=== PATIENT | female | born 1985 | race Caucasian/White ===

== ENCOUNTER 2018-04-18 14:46 | Inpatient (IN) ==
[2018-04-18] MEDS ORDERED: Morphine Sulfate PF Inj 5 MG/10 ML Ampul ONE (16:07)
[2018-04-18] MEDS ORDERED: Citric Acid/Sodium Citrate Liq 30 ML UDC ONE (16:33)
[2018-04-18 16:35] LABS: Baso % (Auto) 0.1 % (0.0-2.0); Eos % (Auto) 0.2 % (0.0-4.0); Hematocrit 35.8 % (35.0-46.0); Hemoglobin 12.6 gm/dL (11.6-15.3); Lymph # (Auto) 1.5 th/mm3 (1.0-4.8); Lymph % (Auto) 13.5 % (9.0-44.0); Mean Corpuscular HGB Conc 35.2 % (32.0-36.0); Mean Corpuscular Hemoglobin 31.8 pg (27.0-34.0); Mean Corpuscular Volume 90.2 fL (80.0-100.0); Mean Platelet Volume 7.4 fL (7.0-11.0); Mono # (Auto) 0.7 th/mm3 (0.0-0.9); Mono % (Auto) 6.1 % (0.0-8.0); Neut # (Auto) 9.1 th/mm3 (1.8-7.7); Neut % (Auto) 80.1 % (16.0-70.0); Platelet Count 166 th/mm3 (150-450); Red Blood Count 3.97 mil/mm3 (4.00-5.30); Red Cell Distribution Width 13.4 % (11.6-17.2); White Blood Count 11.4 th/mm3 (4.0-11.0)
[2018-04-18] MEDS ORDERED: Normosol-R pH 7.4 Inj 2,000 ML IV.CONT ONE (16:45)
[2018-04-18] MEDS ORDERED: Phenylephrine/NS 1000 MCG/10ML Syringe IV.PUSH ONE (16:45)
[2018-04-18] MEDS ORDERED: Naloxone Inj 0.4 MG/ML Vial IV.PUSH PRN ×2 (16:50→22:27)
[2018-04-18 16:54] LABS: Bacteria,Urine Rare /hpf; Bilirubin,Urine Negative (Negative); Clarity,Urine Hazy (Clear); Color,Urine Yellow (Yellw/Straw); Glucose,Urine (UA) Negative (Negative); Leukocyte Esterase,Urine Negative (Negative); Mucus,Urine Few /lpf (Occasional); Nitrite,Urine Negative (Negative); Specific Gravity,Urine 1.015 (1.002-1.035); Squamous Epithelial Cell,Urine 1 /hpf (0-5)
[2018-04-18 17:09] LABS: Amphetamine Urine With Conf Neg (Neg); Benzodiazepine Urine With Conf Neg (Neg)
[2018-04-18] MEDS ORDERED: Oxytocin 30 Units/500ml Premix 30 UNITS/500 ML BAG IV.SIG ONE (17:10)
[2018-04-18] MEDS ORDERED: Ketorolac Inj 30 MG/ML (IVP) Vial ONE (18:26)
--- NOTE | 2018-04-18 19:01 | MP ---
cc: No Sahu MD DATE OF OPERATION: 04/18/2018 PREOPERATIVE DIAGNOSES: Intrauterine at 40 weeks and 2 days of gestation with breech presentation and oligohydramnios. POSTOPERATIVE DIAGNOSES: Intrauterine at 40 weeks and 2 days of gestation with breech presentation and oligohydramnios. PROCEDURE PERFORMED: Primary low transverse section. SURGEON: No Sahu MD ANESTHESIA: Spinal. FINDINGS AT SURGERY: Included a viable female weighing 8 pounds 0 ounces with Apgars of 4 and 8. Normal-appearing tubes and ovaries bilaterally. Sb breech presentation. ESTIMATED BLOOD LOSS: 800 mL. COMPLICATIONS: None. PROCEDURE IN DETAIL: After proper consents were obtained and blood had been typed and screened, the patient was taken to the operating room where spinal anesthetic was placed. She was then placed in the dorsal position, sterilely prepped and draped and a Bajwa catheter was placed. At this time, using a sharp knife, a Pfannenstiel skin incision was performed. This was carried down to the fascia using the Bovie cautery. The fascia was nicked in the midline and extended superolaterally on each side via blunt dissection of the muscles off of the fascia. The peritoneum was identified, grasped with 2 hemostats and entered sharply with Metzenbaum scissors. This incision was extended superiorly and inferiorly, paying close attention to the bladder. Bladder blade was placed. Bladder flap was developed. Bladder blade was replaced. We made a transverse incision in the lower uterine segment and extended that using the finger fracture technique. Rupture of membranes revealed clear fluid. We had a controlled delivery of the sb breech, delivering the anterior leg first, followed by the second leg. We then rotated the body to the dorsal side up, delivered to the level of the mid scapula and then swiped the right hand across the face and chest, followed by the left hand. We then delivered the vertex. Bulb suction to the oropharynx and nares. We did delayed cord clamping for 30 seconds, clamped and cut in between and the was handed to the team in attendance, a viable female weighing 8 pounds 0 ounces with Apgars 4 and 8. At this time, cord blood sample was obtained. Placenta was removed. Uterus was exteriorized and wiped clean of clots and debris. The uterine incision was closed with a #1 chromic suture, starting at each apex and meeting in the midline in a running interlocking fashion. Excellent hemostasis was noted. Irrigation was performed of the abdominopelvic cavity. We placed the uterus back into the cavity. We closed the muscles using a #1 chromic suture x 1 and then closed the fascia using 0 Vicryl, starting at each apex and meeting in the midline in a running fashion. Irrigation was performed of the subcutaneous. Hemostasis was achieved with Bovie cautery. space was closed with interrupted sutures of 3-0 Vicryl. We then closed the skin with jeffrey. All sponge, lap and needle counts were correct x 3. MD COOPER John/tyrell , 05:59 PM , 06:09 PM
[2018-04-18] MEDS ORDERED: Oxytocin 30 Units/500ml Premix 30 UNITS/500 ML BAG IV.SIG PRN (21:44)
[2018-04-19] MEDS: ceFAZolin 1 GM Premix Inj 1 GM/50 ML FROZ.PIGGY IV.SIG SCH ×2 (02:11→12:24)
[2018-04-19 05:55] LABS: Baso % (Auto) 0.1 % (0.0-2.0); Eos % (Auto) 0.4 % (0.0-4.0); Hematocrit 29.4 % (35.0-46.0); Hemoglobin 9.9 gm/dL (11.6-15.3); Lymph % (Auto) 8.6 % (9.0-44.0); Mean Corpuscular HGB Conc 33.6 % (32.0-36.0); Mean Corpuscular Hemoglobin 30.6 pg (27.0-34.0); Mean Corpuscular Volume 91.3 fL (80.0-100.0); Mean Platelet Volume 7.7 fL (7.0-11.0); Mono # (Auto) 0.6 th/mm3 (0.0-0.9); Mono % (Auto) 5.1 % (0.0-8.0); Neut % (Auto) 85.8 % (16.0-70.0); Platelet Count 135 th/mm3 (150-450); Red Blood Count 3.22 mil/mm3 (4.00-5.30); Red Cell Distribution Width 12.9 % (11.6-17.2); White Blood Count 11.7 th/mm3 (4.0-11.0)
--- NOTE | 2018-04-19 08:11 | P.PNOB ---
Subjective Post op day: 1 Interval history: Pt doing well, breast feeding going well, pain controlled Objective Vital Signs/I&O: Vital Signs 04/18/18 16:26 04/18/18 16:32 04/18/18 17:40 Temperature 97.8 F Pulse Rate 102 H 101 H 88 Respiratory Rate 19 15 Blood Pressure 133/92 H 109/83 125/70 04/18/18 17:54 04/18/18 18:01 04/18/18 18:02 Temperature Pulse Rate 91 H 85 Respiratory Rate 19 20 Blood Pressure 127/67 143/86 H 04/18/18 18:16 04/18/18 18:18 04/18/18 18:19 Temperature Pulse Rate 85 Respiratory Rate 20 Blood Pressure 134/65 04/18/18 18:32 04/18/18 18:33 04/18/18 18:45 Temperature Pulse Rate 82 85 Respiratory Rate 19 Blood Pressure 136/70 143/79 H 04/18/18 18:46 04/18/18 19:01 04/18/18 19:10 Temperature 98.0 F Pulse Rate Respiratory Rate 18 19 Blood Pressure 132/81 04/18/18 19:55 04/18/18 23:55 04/19/18 04:00 Temperature 98.1 F 98.3 F 98.6 F Pulse Rate 90 87 85 Respiratory Rate 18 18 18 Blood Pressure 132/78 120/69 111/63 Intake & Output 04/18/18 04/19/18 04/19/18 18:59 06:59 18:59 Intake Total 50 / 50 Balance 50 / 50 Weight 87.09 kg Intake: IV 50 / 50 Ancef 1 GM Premix Inj 1 gm In 50 / 50 50 ml @ 200 mls/hr IV.SIG Q8H ON LICENSE OF [facility] Rx#:[id number] Result Diagrams: 04/19/18 05:25 Objective Remarks: GENERAL: Well-nourished, well-developed patient. CARDIOVASCULAR: Regular rate and rhythm without murmurs, gallops, or rubs. RESPIRATORY: Breath sounds equal bilaterally. No accessory muscle use. ABDOMEN/GI: Abdomen soft, non-tender, bowel sounds present. Incision: Clean, dry and intact. Fundus: Firm, non-tender at umbilicus. GENITOURINARY: Light to moderate bleeding. EXTREMITIES: No cyanosis or edema, non-tender, without signs of DVT. Medications and IVs: Active Medications Diphenhydramine HCl (Benadryl Inj) 25 mg IV.PUSH Q6H PRN PRN Reason: MILD TO MODERATE ITCHING Stop: 04/19/18 16:49 Diphenhydramine HCl (Benadryl) 50 mg PO Q6H PRN PRN Reason: MILD TO MODERATE ITCHING Stop: 04/19/18 16:49 Diphenhydramine HCl (Benadryl Inj) 25 mg IV.PUSH Q6H PRN PRN Reason: MILD TO MODERATE ITCHING Stop: 04/19/18 22:26 Diphenhydramine HCl (Benadryl) 50 mg PO Q6H PRN PRN Reason: MILD TO MODERATE ITCHING Stop: 04/19/18 22:26 Diphtheria/Pertussis/Tetanus Vacc (Boostrix Vaccine Inj) 0.5 ml IM .ONCE ONE Stop: 04/19/18 16:01 Lactated Ringer's (Lr 1000 Ml Inj) 1,000 mls @ 100 mls/hr IV.CONT .Q10H IVY Stop: 04/19/18 17:43 Last Admin: 04/19/18 00:59 Dose: 100 mls/hr Oxytocin (Pitocin 30 Units/Ns 500 Ml Premix) 30 units in 500 mls @ 100 mls/hr IV.SIG UNSCH PRN PRN Reason: Heavy bleeding Last Admin: 04/19/18 05:50 Dose: 100 mls/hr Ibuprofen (Motrin) 800 mg PO Q8H PRN PRN Reason: cramping Last Admin: 04/19/18 02:46 Dose: 800 mg Ketorolac Tromethamine (Toradol Inj) 30 mg IM Q6H PRN PRN Reason: SEE LABEL COMMENTS Last Admin: 04/18/18 18:28 Dose: 30 mg Measles/Mumps/Rubella Vaccine Live (M-M-R Ii Vaccine Inj) 0.5 ml SQ .ONCE ONE Stop: 04/19/18 16:01 Miscellaneous Information (Misc Nursing Information) 1 each OTHER UNSCH PRN PRN Reason: SEE LABEL COMMENTS Stop: 04/19/18 16:49 Miscellaneous Information (Misc Nursing Information) 1 each OTHER UNSCH PRN PRN Reason: SEE LABEL COMMENTS Stop: 04/19/18 16:49 Miscellaneous Information (Misc Nursing Information) 1 each OTHER UNSCH PRN PRN Reason: SEE LABEL COMMENTS Stop: 04/19/18 22:26 Miscellaneous Information ([facility] Nursing Information) 1 each OTHER UNSCH PRN PRN Reason: SEE LABEL COMMENTS Stop: 04/19/18 22:26 Naloxone HCl (Narcan Inj) 0.4 mg IV.PUSH UNSCH PRN PRN Reason: SEE LABEL COMMENTS Stop: 04/19/18 16:49 Naloxone HCl (Narcan Inj) 0.4 mg IV.PUSH UNSCH PRN PRN Reason: SEE LABEL COMMENTS Stop: 04/19/18 22:26 Oxycodone/Acetaminophen (Percocet 5/325 Mg) 1 tab PO Q4H PRN PRN Reason: PAIN SCALE 3 TO 5 Oxycodone/Acetaminophen (Percocet 5/325 Mg) 2 tab PO Q4H PRN PRN Reason: PAIN SCALE 6 TO 10 Sodium Chloride (Ns Flush) 2 ml IV.FLUSH BID IVY Last Admin: 04/19/18 00:59 Dose: 2 ml Sodium Chloride (Ns Flush) 2 ml IV.FLUSH PRN PRN PRN Reason: FLUSH AFTER USING IV ACCESS Assessment and Plan - Plan POD # 1 s/p c/s for breech doing well, routine care
[2018-04-19] MEDS ORDERED: ceFAZolin 1 GM Premix Inj 1 GM/50 ML FROZ.PIGGY IV.SIG SCH (10:00)
[2018-04-19] MEDS: Senna/Docusate Sodium 8.6/50 MG Tablet PO PRN (12:34)
[2018-04-19] MEDS ORDERED: Diphtheria/Tetanus/Pertussis Vaccine Inj 0.5 ML Syringe IM ONE (16:00)
[2018-04-19] MEDS ORDERED: Measles/Mumps/Rubella Vaccine Inj 0.5 ML Vial SQ ONE (16:00)
[2018-04-20] MEDS: Senna/Docusate Sodium 8.6/50 MG Tablet PO PRN (03:43)
--- NOTE | 2018-04-20 08:20 | P.PNOB ---
Subjective Post day: 2 Interval history: doing well PP day #2 wants DC in AM Objective Vital Signs/I&O: Vital Signs 04/19/18 12:00 04/19/18 20:00 Temperature 98.5 F 98.3 F Pulse Rate 83 111 H Respiratory Rate 8 L 16 Blood Pressure 109/71 104/66 Intake & Output 04/19/18 04/20/18 04/20/18 18:59 06:59 18:59 Intake Total 50 / 50 Balance 50 / 50 Intake: IV 50 / 50 Ancef 1 GM Premix Inj 1 gm In 50 / 50 50 ml @ 200 mls/hr IV.SIG Q8H IVY Rx#:[id number] Result Diagrams: 04/19/18 05:25 Objective Remarks: GENERAL: Well-nourished, well-developed patient. CARDIOVASCULAR: Regular rate and rhythm without murmurs, gallops, or rubs. RESPIRATORY: Breath sounds equal bilaterally. No accessory muscle use. ABDOMEN/GI: Abdomen soft, non-tender. Fundus: Firm, non-tender at umbilicus. GENITOURINARY: Light to moderate bleeding. EXTREMITIES: No cyanosis or edema, non-tender, without signs of DVT. Medications and IVs: Active Medications Oxytocin (Pitocin 30 Units/Ns 500 Ml Premix) 30 units in 500 mls @ 100 mls/hr IV.SIG UNSCH PRN PRN Reason: Heavy bleeding Last Admin: 04/19/18 05:50 Dose: 100 mls/hr Ibuprofen (Motrin) 800 mg PO Q8H PRN PRN Reason: cramping Last Admin: 04/19/18 23:03 Dose: 800 mg Oxycodone/Acetaminophen (Percocet 5/325 Mg) 1 tab PO Q4H PRN PRN Reason: PAIN SCALE 3 TO 5 Last Admin: 04/19/18 17:01 Dose: 1 tab Oxycodone/Acetaminophen (Percocet 5/325 Mg) 2 tab PO Q4H PRN PRN Reason: PAIN SCALE 6 TO 10 Last Admin: 04/20/18 03:43 Dose: 2 tab Senna/Docusate Sodium (Aysha-Colace) 2 tab PO Q12H PRN PRN Reason: MILD CONSTIPATION Last Admin: 04/20/18 03:43 Dose: 2 tab Sodium Chloride (Ns Flush) 2 ml IV.FLUSH BID IVY Last Admin: 04/19/18 21:11 Dose: 2 ml Sodium Chloride (Ns Flush) 2 ml IV.FLUSH PRN PRN PRN Reason: FLUSH AFTER USING IV ACCESS Assessment and Plan - Plan POD # 2 s/p c/s for breech doing well, routine care, breast feeding DC in AM
--- NOTE | 2018-04-20 08:24 | P.DS ---
Date of admission: 04/18/18 14:46 Primary care physician: Michelle Primary Care Physician Brief History from admission: 32 yo patient with breech and oligo had CS DS: Diagnosis - Discharge Diagnosis (1) delivery delivered Status: Acute (2) Breech delivery Status: Acute DS: Medications - Discharge Medications Prescriptions: oxycodone-acetaminophen 2 tab PO Q4H PRN 3 Days #24 tab PRN Reason: Pain Scale 6 To 10 DS: Summary Hospital Course: Patient cam in 04/18/2018 had CS - Time Spent with Patient Total time spent providing and/or coordinating discharge services: Less than 30 minutes Exam Vital signs: Vital Signs 04/19/18 12:00 04/19/18 20:00 Temperature 98.5 F 98.3 F Pulse Rate 83 111 H Respiratory Rate 8 L 16 Blood Pressure 109/71 104/66 Intake & Output 04/19/18 04/20/18 04/20/18 18:59 06:59 18:59 Intake Total 50 / 50 Balance 50 / 50 Intake: IV 50 / 50 Ancef 1 GM Premix Inj 1 gm In 50 / 50 50 ml @ 200 mls/hr IV.SIG Q8H IVY Rx#:[id number] - Constitutional no acute distress - Routine Respiratory Exam Present: CTA bilaterally - Routine Cardiovascular Exam Present: RRR - Routine Abdominal Exam Present: soft, normoactive bowel sounds Results Procedures completed during hospitalization: section Discharge Plan - Discharge Disposition Patient Disposition: 01 Discharge Home - Discharge Condition Condition: Good - Physicians Team Primary Care Provider: Michelle Rico Attending Provider: No Khan - Rxs /Orders / Referrals /Forms Prescriptions: New oxycodone-acetaminophen 5-325 mg Tablet 2 tab PO Q4H PRN (Reason: Pain Scale 6 To 10) 3 Days Qty: 24 RF: 0 Continue Referrals: No Khan MD [Physician] - See Instructions (follow up 2 weeks) Primary Care Michelle Monae [Primary Care Provider] - See Instructions - Post Discharge Care Plan Care Plan Goals: Congratulations on your new baby! We want your recovery to be lee and trouble free. Please Report the Following Symptoms to Your Doctor: -Temperature above 100.5 degrees -Redness of incision or excessive or foul smelling drainage -Unusual pain or calf pain -Increased vaginal bleeding -Painful or difficulty urinating -Feelings of extreme sadness or anxiety Goals to Promote Your Health * To prevent worsening of your condition and complications * To maintain your health at the optimal level Directions to Meet Your Goals Take your medications as prescribed Follow your dietary instruction Follow activity as directed Ensure plenty of rest for recovery Drink fluids for hydration Keep your appointments as scheduled Take your immunizations and boosters as scheduled If your symptoms worsen call your OB Physician, or go to an Urgent Care Center or Emergency Room Smoking is Dangerous to your health. Avoid second hand smoke Call the 24-hour crisis hotline for domestic abuse at
== END 2018-04-21 13:18 | disposition home or self-care (01) ==
LOC: H2E 14:46 → H1EA 19:48
PROVIDERS: ADMIT Obstetrics & Gynecology; ATTEND Obstetrics & Gynecology